=== PATIENT | male | born 1960 | race Caucasian/White ===

== ENCOUNTER 2017-10-09 06:16 | Outpatient (CLI) | payer OTHER ==
[~2017-10-09] VITALS: Ht 172.7 cm; Wt 106.8 kg
--- NOTE | ~2017-10-09 | HEMODYNAMI ---
PATIENT:MICA MCLAUGHLIN MEDICAL RECORD: [id number] : 62 LOCATION:[facility] ADMISSION DATE: 10/09/17 Generatedon:10/09/20179:28 Patient name: MICA MCLAUGHLIN Patient #: [id number] SSN: : Date of study: 10/09/2017 Page: Of Hemodynamic Procedure Report Patient Data Patient Demographics Procedure consent was obtained First Name: MICA Gender: Male Last Name: ARNOLDO : 1960 [facility] Initial: D Age: 57 year(s) Patient #: [id number] Race: Additional ID: [id number] Contact details Address: [address] [place] [address] State: [place] City: [place] Zip code: [address] Past Medical History Allergies: No known allergies Admission Admission Data Admission Date: 10/09/2017 Admission Time: 6:16 Height (in.): 5.8 BSA: 0.37 (m2) Height (cm.): 14.73 BMI: 5057.76 (kg/m2) Weight (lbs.): 242 Weight (kg.): 109.77 Lab Results Lab Result Date: 10/09/2017 Lab Result Time: 0:00 Biochemistry Name Units Result Min Max BUN mg/dl 27 --(----)-* 7 18 Creatinine mg/dl 0.9 --(-*--)-- 0.6 1.3 CBC Name Units Result Min Max Hemoglobin g/dl 18.8 --(----)-* 13.5 17.5 Procedure Procedure Types Cath Procedure Diagnostic Procedure Sedation Charges Moderate [facility]Coron[facility] w/Grafts Procedure Description Procedure Date Procedure Date: 10/09/2017 Procedure Start Time: 9:12 Procedure End Time: 9:28 Procedure Staff Name Function Robert Fuller MD Performing Physician Delmi Escobedo RT Monitor Karolyn Perez RT Scrub Aayush Tsai RN Nurse Procedure Data Cath Procedure Fluoroscopy Diagnostic fluoroscopy Total fluoroscopy Time: 2.5 time: 2.5 min min Diagnostic fluoroscopy Total fluoroscopy dose: 699 dose: 699 mGy mGy Contrast Material Contrast Material Type Amount (ml) Isovue 300 77 Entry Location Entry Primary Successful Side Size Upsize Upsize Entry Closure Succes sful Closure Location (Fr) 1 (Fr) 2 (Fr) Remarks Device Remarks Femoral Right 5 Fr Exoseal artery Estimated blood loss: 5 ml Diagnostic catheters Device Type Used For End Catheter Placement MULTIPACK JL 4.0 5Fr Procedure catheter MULTIPACK 3DRC 5Fr Procedure catheter DIAGNOSTIC IMT 5Fr Procedure Catheter ([id number]) MULTIPACK Pigtail 5 Fr Procedure catheter Procedure Complications No complications Procedure Medications Medication Administration Route Dosage 0.9% NaCl I.V. 100 ml/hr Oxygen NC 2 l/min Heparin Flush Bag added to field 2 bags (1000units/500ml NS) Lidocaine 2% added to field 20 Versed I.V. 1 mg Fentanyl I.V. 50 mcg Versed I.V. 1 mg Fentanyl I.V. 50 mcg Hemodynamics Rest BSA: 0.37 (m2) HGB: 18.8 (g/dl) O2 Consumption: Estimated: 43.48 (ml/min) O2 Con sumption indexed: Estimated:117.51 (ml/min/m) Heart Rate: 68 (bpm) Pressure Samples Time Site Value (mmHg) Purpose Heart Use Rate(bpm) 9:23 AO 130/68(93) Pullback 64 9:23 LV 139/2,11 Pullback 64 Gradients Valve Time Site 1 Site 2 Mean SEP/DFP Peak To Heart Use (mmHg) (sec/min) Peak Rate (mmHg) (bpm) Aortic 9:23 LV AO 18 17 9 64 139/2,11 130/68(93) Calculations Valve P-P Mean Valve Index Valve Source Name Gradient Area Flow (cm2) Aortic 9 18 9 18 Snapshots Pre Cath Intra NCS Post Cath Vital Signs Time Heart Resp SPO2 etCO2 NIBP (mmHg) Rhythm Pain Sedation Rate (ipm) (%) (mmHg) Status Level (bpm) 8:57:49 68 19 98 18.8 138/86(103) NSR 0 (11) 10(A) , No pain 9:02:29 68 14 100 27.9 122/78(94) NSR 0 (11) 10(A) , No pain 9:07:10 66 14 99 39.2 134/76(100) NSR 0 (11) 10(A) , No pain 9:11:53 67 14 99 30.2 128/78(100) NSR 0 (11) 10(A) , No pain 9:16:34 70 14 98 11.3 127/77(97) NSR 0 (11) 9(A) , No pain 9:21:14 68 15 99 0 128/77(103) NSR 0 (11) 9(A) , No pain 9:25:55 69 14 98 8.3 127/80(101) NSR 0 (11) 10(A) , No pain Medications Time Medication Route Dose Verified Delivered Reason Notes Effec tiveness by by 9:05:00 0.9% NaCl I.V. 100 Aayush Aayush Per ml/hr Quin Tsai physician RN RN 9:05:10 Oxygen NC 2 Aayush Aayush Per l/min Quin Tsai physician RN RN 9:05:21 Heparin Flush added 2 Aayush Aayush used for Bag to bags Lorigan Yazminigan procedure (1000units/500ml RN RN NS) 9:05:34 Lidocaine 2% added 20ml Aayush Aayush for local to vial Lorigan Lorigan anesthetic RN RN 9:05:53 Versed I.V. 1 mg Aayush Aayush for Lorigan Lorigan sedation RN RN 9:06:05 Fentanyl I.V. 50 Aayush Aayush for mcg Lorigan Lorigan sedation RN RN 9:11:22 Versed I.V. 1 mg Aayush Aayush for Lorigan Lorigan sedation RN RN 9:11:27 Fentanyl I.V. 50 Aayush Aayush for mcg Lorigan Lorigan sedation RN resource technician Log Time Note 8:45:47 Aayush Tsai RN sent for patient. Start room use. 8:45:48 Time tracking: Regular hours 8:45:51 Plan of Care:Hemodynamics will remain stable., Cardiac rhythm will remain stable., Comfort level will be maintained., Respiratory function will remain adequate., Patient/ family verbilizes understanding of procedure., Procedure tolerated without complication., Recovers from procedure without complications.. 8:49:42 Lab Result : BUN 27 mg/dl 8:49:42 Lab Result : Hemoglobin 18.8 g/dl 8:49:42 Lab Result : Creatinine 0.9 mg/dl 8:49:53 Patient allergic to No known allergies 8:50:35 Patient Height : 5.8 inches 8:50:41 Patient Weight : 242 lbs 8:52:00 Patient received from Pre/Post Procedure Room to CCL 1 Alert and oriented. Tansferred to table in Supine position. 8:52:02 Warm blankets applied, and db hugger turned on for patient comfort. 8:52:02 Correct patient and procedure confirmed by team. 8:52:04 Signed procedure consent form obtained from patient. 8:52:04 ECG and BP/O2 sat monitors applied to patient. 8:56:59 Vital chart was started 8:57:00 Full Disclosure recording started 9:04:11 Baseline sample Acquired. 9:04:14 Rhythm: sinus rhythm 9:04:26 H&P Date Dictated: 10/07/2017 Within 30 days and on chart.. 9:04:26 Pre-procedure instructions explained to patient. 9:04:27 Pre-op teaching completed and patient verbalized understanding. 9:04:30 Family in patients room. 9:04:31 Patient NPO since Midnight. 9:04:34 Is the patient allergic to Iodine/contrast media? No. 9:04:39 Is patient on blood thinner?No 9:04:40 Patient diabetic? Yes. 9:04:41 If diabetic: On Metformin? Yes 9:04:52 If on Metformin: Last Dose? 10/06/2017 9:04:58 Snore? Yes 9:04:59 Previous problem with sedation/anesthesia? No ? 9:05:00 0.9% NaCl 100 ml/hr I.V. was administered by Aayush Tsai RN; Per physician; 9:05:01 Sleep apnea? No 9:05:02 Deviated septum? No 9:05:03 Opens mouth fully? Yes 9:05:04 Sticks out tongue? Yes 9:05:06 Airway obstruction? No ? 9:05:08 Dentures? No ? 9:05:10 Oxygen 2 l/min NC was administered by Aayush Tsai RN; Per physician; 9:05:11 Pre procedure: right dorsailis pedis pulse 2+ Normal; easily identifiable; not easily obliterated 9:05:20 IV patent on arrival in left forearm with 0.9% NaCl at O. 9:05:21 Heparin Flush Bag (1000units/500ml NS) 2 bags added to field was administered by Aayush Tsai RN; used for procedure; 9:05:23 Lab results completed and on chart. 9:05:26 Right groin area was prepped with chlora-prep and draped in sterile fashion 9:05: Alarms reviewed by R. N. 9:05:30 Sharps counted by scrub and verified by R.N. 9::31 --------ALL STOP TIME OUT------ ::31 Final Timeout: patient, procedure, and site verified with staff and physician. All members of the team are in agreement. 9:05:33 Right groin site verified by team. 9:05:34 Lidocaine 2% 20ml vial added to field was administered by Aayush Tsai RN; for local anesthetic; 9:05:37 Physical assessment completed. ASA score P 2 - A patient with mild systemic disease as per Robert Fuller MD. 9:05:40 Sedation plan: IV Moderate Sedation Medication:Versed, Fentanyl 9:05:53 Versed 1 mg I.V. was administered by Aayush Tsai RN; for sedation; 9:06:05 Fentanyl 50 mcg I.V. was administered by Aayush Tsai RN; for sedation; 9:07:16 Use device set Femoral Dx 9:07:17 ACIST Syringe (90843) opened to sterile field. 9:07:18 Bag Decanter (2001S) opened to sterile field. 9:07:20 ACIST Hand Control (22190) opened to sterile field. 9:07:20 ACIST Manifold (52174) opened to sterile field. 9:07:22 Tegaderm 4 x 4 (1626W) opened to sterile field. 9:07:24 Medline Cath Pack ([id number]) opened to sterile field. 9:07:25 SHEATH 5FR [place] (RJS756) opened to sterile field. 9:07:25 DIAGNOSTIC WIRE .035 260cm J wire (586597) opened to sterile field. 9:07:27 DIAGNOSTIC Multipack 5Fr catheter set ([id number]) opened to sterile field. 9:07:28 PERCUTANEOUS ENTRY 19GA needle opened to sterile field. 9:11:21 Zero performed for pressure channel P1 9:11:22 Versed 1 mg I.V. was administered by Aayush Tsai RN; for sedation; 9:11:27 Fentanyl 50 mcg I.V. was administered by Aayush Tsai RN; for sedation; 9:11:33 Procedure started. 9:12:38 Local anesthetic to right femoral artery with Lidocaine 2% by Robert Fuller MD.INITIAL ACCESS ONLY 9:14:21 A 5 Fr sheath was inserted into the Right Femoral artery 9:14:55 A MULTIPACK JL 4.0 5Fr catheter was advanced over the wire and used for Procedure. 9:16:06 Catheter exchanged over wire. 9:17:13 A MULTIPACK 3DRC 5Fr catheter was advanced over the wire and used for Procedure. 9:17:45 RCA angiography performed. 9:18:00 Catheter exchanged over wire. 9:18:49 A DIAGNOSTIC IMT 5Fr Catheter ([id number]) was advanced over the wire and used for Procedure. 9:20:01 NICOLAS to LAD angiography performed. 9:21:03 Catheter exchanged over wire. 9:22:33 A MULTIPACK Pigtail 5 Fr catheter was advanced over the wire and used for Procedure. 9:22:47 LV gram done using CENTENO 9:22:51 Injector settings: Ml/sec: 10, Volume: 20, 9:22:54 LV hemodynamics recorded. 9:22:59 EF : 55 % 9:23:20 Catheter removed. 9:23:30 EXOSEAL 5Fr (EX500) opened to sterile field. 9:23:55 Sheath removed intact; hemostasis achieved with Exoseal to the Right Femoral artery. 9:24:32 Procedure ended.(Physican Out) 9:24:36 Fluoroscopy time 02.50 minutes. 9:24:40 Fluoroscopy dose: 699 mGy 9:24:40 Flurop Dose total: 699 9:24:44 Contrast amount:Isovue 300 77ml. 9:24:47 Sharps counted by scrub and verified by R.N. 9:24:52 Post-op/insertion site Right Femoral artery dressed using a 4 x 4 and Tegaderm. 9:24:56 Post right femoral artery:stable, soft, clean and dry 9:24:59 Post procedure: right dorsailis pedis pulse 2+ Normal; easily identifiable; not easily obliterated. 9:25:01 Post-procedure physical assessment completed. ASA score P 2 - A patient with mild systemic disease as per Robert Fuller MD. 9:25:21 Post procedure rhythm: unchanged. 9:25:24 Estimated blood loss: 5 ml 9:25:54 Post procedure instruction explained to patient.Patient verbalizes understanding. 9:25:54 Patient needs reinforcement of post procedure teaching. 9:26:05 Procedure type changed to Cath procedure, Diagnostic procedure, Sedation Charges, Moderate Sedation up to 15 minutes, LHC, LHC w/Coronaries w/Grafts 9:27:49 Procedure and supply charges have been captured, reviewed, submitted and are correct. 9:27:52 Procedure Complication : No complications 9::54 Vital chart was stopped 9::54 See physician's report for complete and final results. 9:27:57 Report given to Pre/Post Procedure Room. 9:28:00 Patient transfered to Pre/Post Procedure Room with Bed. 9:28:02 Procedure ended. 9:28:02 Full Disclosure recording stopped Device Usage Item Name Manufacture Quantity Catalog Number Hospital Part Current Mini mal Lot# / Charge Number Stock Stock Serial# Code ACIST Acist 1 26029 223600 082719 781363 20 Syringe Medical (05666) Systems Inc Bag Decanter Microtek 1 2001S 356106 17696 508461 5 (2001S) Medical Inc. ACIST Hand Acist 1 01051 190466 279007 892822 5 Control Medical (70394) Systems Inc ACIST Acist 1 71104 808988 726315 946228 5 Manifold Medical (17749) Systems Inc Tegaderm 4 x 3M 1 1626W 481200 428945 202374 5 4 (1626W) Medline Cath Cardinal 1 [id number] 956393 07872 324674 5 Pack Health ([id number]) SHEATH 5FR Terumo 1 NLQ852 358704 801250 573935 40 [place] (FEM000) DIAGNOSTIC St [place]son 1 450587 119047 968692 386166 30 WIRE .035 260cm J wire (744767) DIAGNOSTIC Cardinal 1 EH1950 750099 13983 094940 30 Multipack Health 5Fr catheter set ([id number]) PERCUTANEOUS Cook Medical 1 R91999 621107 310814 5 ENTRY 19GA needle MULTIPACK JL Cardinal 1 291704 5 4.0 5Fr Health catheter MULTIPACK Cardinal 1 877375 5 3DRC 5Fr Health catheter DIAGNOSTIC [place] 1 [id number] 223918 224999 27059 5 IMT 5Fr Scientific Catheter ([id number]) MULTIPACK Cardinal 1 131253 5 Pigtail 5 Fr Health catheter EXOSEAL 5Fr Cardinal 1 EX500 723672 118947 071427 10 (EX500) Health Signature Audit [place] Stage Time Signature Unsigned Intra-Procedure 10/09/2017 Delmi Escobedo 9:28:48 AM RT(R) Signatures Monitor : Delmi Escobedo Signature : RT Date : Time : [address] [address]
[~2017-10-09 06:16] MED LIST: COREG 3.1253.125 MG PO; DIABETA5 MG PO; DIOVAN HCT 160/1 TAB PO; DIOVAN80 MG PO; FARXIGA10 MG PO; GLIMEPIRIDE4 MG PO; GLUCOPHAGE500 MG PO; LIPITOR20 MG PO; PLAVIX75 MG PO; TESTOSTERON200 MG/ML IM; TESTOSTERONE IM; ULTRAM50 MG PO
[2017-10-09] MEDS ORDERED: BAYER CHEWABLE81 MG PO (06:36)
[2017-10-09] MEDS ORDERED: CIALIS10 MG PO (06:36)
[2017-10-09] MEDS ORDERED: BACLOFEN20 M1 PO (06:37)
[2017-10-09 06:43] VITALS: BP 117/77; Ht 172.7 cm; Wt 106.8 kg
[2017-10-09 06:57] LABS: BASOPHILS 0.1 % (0-2); EOSINOPHILS 1.7 % (0-7); HEMATOCRIT 53.4 % (42.0-54.0); HEMOGLOBIN 18.8 g/dL (13.5-17.5); IMMATURE GRANULOCYTES 0.4 % (0-5); LYMPHOCYTES 33.9 % (15-50); MCH 32.6 pg (26.0-34.0); MCHC 35.2 g/dL (31.0-37.0); MCV 92.5 fL (80.0-100.0); MEAN PLATELET VOLUME 10.3 fL (7.4-10.4); NEUTROPHILS 56.9 % (40-80); PLATELET COUNT 182 10x3/uL (130-400); RBC 5.77 10x6/uL (4.20-6.10); RDW 13.2 % (11.5-14.5); WBC 8.3 10x3/uL (4.8-10.8)
[2017-10-09 07:06] LABS: CALC OSMOLALITY 273 mosm/kg (275-300); CALCIUM 8.7 mg/dL (8.5-10.1); CARBON DIOXIDE 27.6 mmol/L (21.0-32.0); CHLORIDE - SERUM 98 mmol/L (98-107); CREATININE - SERUM 0.9 mg/dL (0.6-1.3); GLUCOSE 124 mg/dL (74-106); POTASSIUM - SERUM 3.8 mmol/L (3.5-5.1); SODIUM 134 mmol/L (136-145); UREA NITROGEN 27 mg/dL (7-18); eGFR NON AFRICAN AMERICAN > 90 mL/min (90-120)
== END 2017-10-09 11:55 | disposition home or self-care (01) ==
LOC: D.CATH 06:16
PROVIDERS: Internal Medicine Cardiovascular Disease
DX: R07.89 Other chest pain (principal); Z95.1 Presence of aortocoronary bypass graft; Z01.812 Encounter for preprocedural laboratory examination

== ENCOUNTER → 2019-01-14 12:28 | Outpatient (CLI) | payer OTHER ==
[2017-10-09 06:43] VITALS: BMI 35.8
[~2019-01-14 12:28] MED LIST changes: +BACLOFEN20 M1 PO; +BAYER CHEWABLE81 MG PO; +CIALIS10 MG PO
== END | disposition home or self-care (01) ==
LOC: D.HCCARDIO 12:28
PROVIDERS: ATTEND Internal Medicine Cardiovascular Disease
DX: I25.810 Atherosclerosis of coronary artery bypass graft(s) without angina pectoris (principal)